=== PATIENT | female | born 1945 | race Caucasian/White ===

== ENCOUNTER 2020-03-29 09:30 | Outpatient (RCR) | payer MEDICARE, SELFPAY ==
--- NOTE | 2020-02-29 09:29 | PTOPEVAL ---
Thank you for referring Amanda Brambila to [facility].? The patient is scheduled to be seen for therapy? 2 x/week for 6 weeks. Please review, sign, date and return this plan of care MADELEINE. I agree with and certify that the following plan of care is medically necessary. Referring Physician Date Attending Provider: Bridget Ramos DO Referring Provider: *PT Outpatient Evaluation Start: 02/29/20 08:13 Freq: Status: Active Protocol: Document 02/29/20 08:17 ALEXYS (Rec: 02/29/20 09:29 ALEXYS [id number]) Therapy Assessment Status Assessment Status Assessment Status Evaluation Outpatient Past Medical History Past Medical History Source of Past Medical History Patient Neurological History Hx Other Neurological Disorders Yes: vertigo Cardiovascular History Hx Cardiac Disorders No Significant History Respiratory History Hx Respiratory Disorders No Significant History Gastrointestinal History Hx Gastrointestinal Disorders No Significant History Genitourinary History Hx Genitourinary Disorders No Significant History Musculoskeletal History Hx Back Injury Yes Hx Back Pain Yes Hx Fractures Yes: left hip fx, 2010, foot bones, L2 fx, right ankle, right clavicle Hx Joint Replacement Yes: left THR 2009 Hx Scoliosis Yes Endocrine History Hx Endocrine Disorders No Significant History Evaluation Information Problem Diagnosis chronic back pain Onset chronic, Nov 2019 Cause fall, scoliosis, L2 fx Additional Evaluation Detail vestibular impairments limiting her balance and walking. Subjective Information Pt had a fall backwards into Query Text:As Reported By Patient/ her tub. She had increased Family back pain that was not improving. She has increased pain in the morning. States the pain is in the left hip/buttock region in the morning, but later in the day her right side becomes more painful. Notices the increased hip pain with prolonged sitting in her recline for hours in the evening. Reports difficulty after sitting in any chair. She reoports limitations with lifting, especially heavy objects.
--- NOTE | 2020-03-12 16:02 | PCPTNOTE ---
Patient called & cancelled scheduled appointment this date and her visit on the due to vertigo.
--- NOTE | 2020-03-29 15:37 | PTOPEVAL ---
Thank you for referring Amanda Brambila to [facility].?Pt has received 8 therapy visits to address back pain. She demonstrates improved pain at rest and with activities, improved strength, improved joint motion of back and hip region. She is indep with her HEP at this time. She has achieve most of her therapy goals at this time. DC skilled therapy services at this time. Please review, sign, date and return this discharge summary. I agree with and certify that the following plan of care is medically necessary. Referring Physician Date Attending Provider: Bridget Duran Discharge Note Problem Diagnosis chronic back pain Onset chronic, Nov 2019 Cause fall, scoliosis, L2 fx Additional Evaluation Detail vestibular impairments limiting her balance and walking. Pt had a fall backwards into her tub. She had increased back pain that was not improving. She reports issues with vertigo. Subjective Information States she is stiff in the Query Text:As Reported By Patient/ morning, then improved after Family she is moving. States the pain is in the left hip/buttock region in the morning, but later in the day her right side becomes more painful. Notices the increased hip pain with prolonged sitting in her recline for hours in the evening. She is getting up every ~30 min. She reoports she is able to lift light objects without a problem. Improved ability to don/dof shoes and socks. She is performing her HEP with muscle pulling and tightness. She has not need to ice for pain. Pain Assessment Bilateral Lower Back Reported Pain Level 2 Pain Description Aching,Tightness Pain Frequency Chronic Lowest Pain Intensity 0 Greatest Pain Intensity 2 Pain Aggravating Factors Prolonged Position,Sitting Other Pain Aggravating Factors sleeping Pain Behaviors None Cervical and Lumbar ROM Lumbar ROM Lumbar Flexion Active Floor Query Text:Hands to: Lateral Flexion mid thigh region Query Text:Active Hands to: Lumbar Comments pulling with t
== END 2020-03-30 07:48 | disposition home or self-care (01) ==
LOC: ANHPT 09:30
PROVIDERS: PCP Internal Medicine
DX: M54.5 Low back pain (principal); M25.551 Pain in right hip; M25.552 Pain in left hip; M53.3 Sacrococcygeal disorders, not elsewhere classified
CPT/HCPCS: 97110; 97112; 97140; 97162

== ENCOUNTER 2021-11-23 14:38 | Emergency (ER) | payer MEDICARE, SELFPAY ==
[2021-11-23 14:46] VITALS: BP 127/84; PULSE 109; RESP 16; TEMP 36.8; O2SAT 99
[2021-11-23 14:48] VITALS: BP 127/84; PULSE 109; RESP 16; TEMP 36.8; O2SAT 99
--- NOTE | 2021-11-23 15:00 | ED.URI ---
HPI - URI/Sore Throat General Chief Complaint: Upper Respiratory Infection Stated Complaint: sore throat Time Seen by Provider: 11/23/21 14:50 Source: patient and RN notes reviewed Mode of arrival: ambulatory Limitations: no limitations History of Present Illness HPI Narrative: 76-year-old, known Covid positive, female presented for complaint of sore throat for 2 days. She endorses she tested positive for COVID 3 days ago, following her influenza vaccination. She endorses fatigue, cough, and fever which have improved. Has been taking ibuprofen as needed for symptoms. Denies chest pain, shortness of breath, wheezing, n/v/d/f/c. States her daughter wanted her to be checked for strep. MD elicited complaint: cough Related Data Home Medications Medication Instructions Recorded Confirmed calcium carbonate 600 mg-vitamin 1 tablet PO DAILY 11/23/21 11/23/21 D3 10 mcg (400 unit) tablet (Calcium with Vitamin D) pantoprazole 40 mg tablet,delayed 40 mg PO DAILY 11/23/21 11/23/21 release rosuvastatin 5 mg tablet 5 mg PO DAILY 11/23/21 11/23/21 Allergies Allergy/AdvReac Type Severity Reaction Status Date / Time No Known Allergies Allergy Verified 11/23/21 14:59 Review of Systems Review of Systems: CONSTITUTIONAL: Endorses malaise, denies chills, fever EYES: Denies visual changes, redness, or discharge ENT: Denies rhinorrhea, congestion, sinus pain, otalgia CARDIOVASCULAR: Denies chest pain, palpitations, edema RESPIRATORY: Reports cough Denies dyspnea GASTROINTESTINAL: Denies abdominal pain, nausea, vomiting, diarrhea MUSCULOSKELETAL: Endorses myalgia NEUROLOGIC: Denies headache Exam Narrative: GENERAL: Ill-appearing, nontoxic EYES: PERRLA, conjunctivae clear ENT: Mucous membranes moist. TMs pearly meraz with normal light reflex bilaterally; no tragal tenderness. Oropharynx erythematous without lesions or exudate, no drooling, no hoarseness, no trismus, uvula midline. CHEST: Clear to auscultation, breath sounds equal. No wheezing, rhonchi, rales, or stridor. HEART: Regular rate and rhythm. No murmur heard. SKIN: Warm, dry, no rash. NEURO: Alert and oriented x3. PSYCH: Normal mood and affect Course Course Emergency Course: Patient is aware of diagnosis, understands and agrees to treatment plan. Anticipatory guidance given. Patient agrees to follow-up as directed and is aware of reasons to seek care at the emergency department. Portions of this record may have been created with voice recognition software Level of Care: Express Care Visit Vital Signs Vital signs: Vital Signs Temperature 98.2 F 11/23/21 14:46 Pulse Rate 109 H 11/23/21 14:46 Respiratory Rate 16 11/23/21 14:46 Blood Pressure 127/84 11/23/21 14:46 Pulse Oximetry 99 11/23/21 14:46 Oxygen Delivery Room Air 11/23/21 14:46 Temperature 98.2 F 11/23/21 14:48 Pulse Rate 109 H 11/23/21 14:48 Respiratory Rate 16 11/23/21 14:48 Blood Pressure 127/84 11/23/21 14:48 Pulse Oximetry 99 11/23/21 14:48 Oxygen Delivery Room Air 11/23/21 14:48 reviewed MDM - URI/Sore Throat MDM Narrative Medical decision making narrative: strep negative. Result reviewed with patient. Advised supportive measures and signs/symptoms to go to the ER. Pt is appropriate for outpt treatment and f/u. Differential Diagnosis Differential diagnosis: Likely upper respiratory infection, sinusitis, viral infection and pharyngitis Discharge Plan Discharge Clinical Impression: Viral infection Patient Disposition: Home, Self-Care Condition: Stable Instructions: COVID-19 (Coronavirus Disease 2019) (ED) Additional Instructions: Rapid strep swab was negative today if symptoms are due to a viral illness, it is not treated with antibiotics. Viral symptoms can be present for up to 10-14 days. Recommend Flonase spray and Zyrtec for sinus congestion Cough syrup may cause drowsiness; avoid driving or take it at night time. Richard
== END 2021-11-23 15:15 | disposition home or self-care (01) ==
PROVIDERS: Emergency Provider Nurse Practitioner Family; PCP Internal Medicine
DX: B34.9 Viral infection, unspecified (principal)
CPT/HCPCS: 87880; 99213; G0463